=== PATIENT | female | born 1990 | race Caucasian/White ===

== ENCOUNTER 2025-04-28 11:01 | Emergency (ER) | payer BC, SELFPAY ==
[2025-04-28 11:04] VITALS: BP 128/78; PULSE 94; RESP 20; TEMP 36.6; O2SAT 100
[2025-04-28 11:26] LABS: EDCOVIDSCREEN Negative (Negative); EDINFLUASCREEN Negative (Negative); EDINFLUBSCREEN Negative (Negative)
--- OUTSIDE RECORDS SUMMARY | 2025-04-28 11:29 | XMS_ITS | Encounter Summary ---
Author Organization [facility] Address [address] [place] [address] Phone Care Team Providers Care Software Engineer Sales Name Role Phone Justin Shelby MD Unavailable Soha Garcia PHILOSOPHY FACULTY, GLOBAL HEAD ADVERTISER SOLUTIONS Primary Care Provider + Reason for Visit * Reason Onset Date Comments Results 03/06/2025 Encounter Details Date Type Department Care Team (Late st Contact Info) Description 03/06/2025 Results Follow-Up [facility] - Obstetrics & Gynecology - [place] [address] [place] [id number] Soha Garcia, PHILOSOPHY FACULTY, GLOBAL HEAD ADVERTISER SOLUTIONS [address] [place] [address] CMP (COMPREHENSIVE METABOLIC PANEL), VITAMIN D, 25 HYDROXY TOTAL, VITAMIN B12, Additional followed-up results: 5 Social History Tobacco Use Types Packs/Day Years Used Date Smoking Tobacco: Every Day Cigarettes 1 21 Started: 2004 Smokeless Tobacco: Never Alcohol Use Standard Drinks/Week Comments Yes 4 (1 standard drink = 0.6 oz pur e alcohol) 1-2 twisted tea a night PHQ-2 Answer Date Recorded Total Score - Questions 1-9 0 02/04 Social Connection and Isolation Panel Answer Date Recorded In a typical week, how many times do you talk on the phone with family, friends, or neighbors? Once a week 02/13/20 How often do you get togethe r with friends or relatives? Never 02/12/2025 How often do you attend chur ch or adventism services? Never 02/12/2025 Do you belong to any clubs o r organizations such as anabaptism groups, unions, fraternal or athletic groups, or school groups? No 02/12/2025 How often do you attend meet ings of the clubs or organizations you belong to? Never 02/12/2025 Are you , , di vorced, , never , or living with a partner? Living with partner 02/12/2025 AUDIT-C Answer Date Recorded Q1: How often do you have a drink containing alcohol? 4 or more times a week 02/12/2025 Q2: How many drinks containi ng alcohol do you have on a typical day when you are drinking? 1 or 2 Q3: How often do you have si x or more drinks on one occasion? Less than monthly 02/12/2025 Overall Financial Resource Strain (CARDIA) Answe r Date Recorded How hard is it for you to pa y for the very basics like food, housing, medical care, and heating? Not very hard 02/12/2025 [facility] - Occupational Stress Questionnaire Answer Date Recorded Do you feel stress - tense, restless, nervous, or anxious, or unable to sleep at night because your mind is troubled all the time - these days? Rather much 02/12/2025 Exercise Vital Sign Answer Date Recorde d On average, how many days pe r week do you engage in moderate to strenuous exercise (like a brisk walk)? 2 days 02/12/2025 On average, how many minutes do you engage in exercise at this level? 30 min 02/12/2025 Hunger Vital Sign Answer Date Recorded Within the past 12 months, y ou worried that your food would run out before you got the money to buy more. Sometimes true Within the past 12 months, t he food you bought just didn't last and you didn't have money to get more. Sometimes true 01/2025 PRAPARE - Transportation Answer Date Re corded In the past 12 months, has l ack of transportation kept you from medical appointments or from getting medications? No 01/2025 In the past 12 months, has l ack of transportation kept you from meetings, work, or from getting things needed for daily living? No 02/12/2025 Housing Stability Vital Sign Answer Christian e Recorded In the last 12 months, was t here a time when you were not able to pay the mortgage or rent on time? Yes 02/12/2025 In the past 12 months, how m any times have you moved where you were living? 1 02/12/2025 At any time in the past 12 m [facility], were you homeless or living in a longterm (including now)? No 02/12/2025 [facility] Utilities Answer Date Recorded In the past 12 months has th e electric, gas, oil, or water company threatened to shut off services in your home? No 02/12/2025 Sexually Active Control Partners Comments Yes Male Comments No Sex and Gender Information Value Date Recorded Sex Assigned at Not on file Legal Sex Female 2:28 PM SENIOR IT RECRUITER Gender Identity Not on file Sexual Orientation Not on file documented as of this encounter Plan of Treatment Upcoming Encounters Date Type Department Care Team (Late st Contact Info) Description 05/05/2025 9:00 AM SENIOR IT RECRUITER [facility] Visit [facility]etrics [facility]ne[facility] [address] [place] [address] Soha Garcia, PHILOSOPHY FACULTY, GLOBAL HEAD ADVERTISER [employer]UTIONS [address] [place] [address] Scheduled Orders Name Type Priority Associated Diagnoses Orde r Schedule VITAMIN D, 25 HYDROXY TOTAL Lab Routine Vitamin D deficiency Expected: 06/06/2025, Expires: 09/03/2025 documented as of this encounter Results * (ABNORMAL) CMP (COMPREHENSIVE METABOLIC PANEL) (03/10/2025 1:56 PM SENIOR IT RECRUITER) SODIUM 139 136 - 145 mmol/L 03/10/2025 2:37 PM SENIOR IT RECRUITER [facility] POTASSIUM 4.0 3.5 - 5.1 mmol/L 03/10/2025 2:37 PM SENIOR IT RECRUITER [facility] CHLORIDE 106 98 - 107 mmol/L 03/10/2025 2:37 PM SENIOR IT RECRUITER [facility] CO2, VENOUS 23 22 - 30 mmol/L 03/10/2025 2:37 PM [facility] ANION GAP 14.0 <18.0 mmol/L 03/10/2025 2:37 PM [facility] GLUCOSE 105(H) 70 - 99 mg/dL 03/10/2025 2:37 PM [facility] BUN 11 5 - 18 mg/dL 03/10/2025 2:37 PM [facility] CREATININE, BLOOD 0.90 0.60 - 1.00 mg/dL 03/10/2025 2:37 PM [facility] BUN/CREATININE RATIO 12 12 - 20 ratio 03/10/2025 2:37 PM [facility] TOTAL PROTEIN 6.7 6.0 - 8.0 g/dL 03/10/2025 2:37 PM [facility] ALBUMIN 4.3 3.5 - 5.0 g/dL 03/10/2025 2:37 PM [facility] A/G RATIO 1.8 1.0 - 2.2 03/10/2025 2:37 PM [facility] CALCIUM 8.8 8.7 - 10.5 mg/dL 03/10/2025 2:37 PM [facility] T BILI 0.2 0.2 - 1.2 mg/dL 03/10/2025 2:37 PM [facility] SGOT (AST) 28 <43 U/L 03/10/2025 2:37 PM [facility] SGPT (ALT) 32 <56 U/L 03/10/2025 2:37 PM [facility] ALKALINE PHOSPHATASE 58 40 - 150 U/L 03/10/2025 2:37 PM [facility] IS THE PATIENT REQUIRED TO BE FASTING? No 03/10/2025 2:37 PM [facility] GFR, ESTIMATED >60 >=60 03/10/2025 2:37 PM [facility] Comment: Creatinine Clearance is the preferred criteria for selecting drug dose adjustments in renally impaired patients. The GFR is provided as additional pertinent clinical information. GFR is reported in mL/min/1.73 sq m. Calculation based on the 2020 Chronic Kidney Disease Epidemiology Collaboration (CKD-EPI) equation refit without adjustment for race. GFR, EST. >60 >=60 2:37 PM SENIOR IT RECRUITER [facility] Comment: Creatinine Clearance is the preferred criteria for selecting drug dose adjustments in renally impaired patients. The GFR is provided as additional pertinent clinical information. GFR is reported in mL/min/1.73 sq m. Calculation based on the 2009 Chronic Kidney Disease Epidemiology Collaboration (CKD-EPI). GFR, EST. NONAFRICAN >60 >=60 03/10/2025 2:37 PM SENIOR IT RECRUITER [facility] Comment: Creatinine Clearance is the preferred criteria for selecting drug dose adjustments in renally impaired patients. The GFR is provided as additional pertinent clinical information. GFR is reported in mL/min/1.73 sq m. Calculation based on the 2009 Chronic Kidney Disease Epidemiology Collaboration (CKD-EPI). Blood Venipuncture / Unknown 03/10/2025 1:56 PM SENIOR IT RECRUITER 03/10/2025 2:08 PM SENIOR IT RECRUITER Soha Garcia APRN, CNP CHEMISTRY ORDERABLES Fin al Result [facility] [address] [place] [address] documented in this encounter Visit Diagnoses Diagnosis Elevated serum creatinine- Primary Other nonspecific findings on examination of blood Vitamin D deficiency Unspecified vitamin D deficiency documented in this encounter Additional Health Concerns Assessment Noted Time PHQ-9 Depression Total Score: 0 02/14/20 25 2:30 PM CDT documented as of this encounter Care Teams Software Engineer Sales Relationship Specialty Start Date End Date Soha Garcia APRN, AIC[facility] [address] [place] [address] PCP - General Advanced Practice Nurse 02/13/25 Justin Shelby MD [address] [address] Consulting Physician Colon and Rectal Surgery 08/29/24 documented as of this encounter
--- OUTSIDE RECORDS SUMMARY | 2025-04-28 11:29 | XMS_ITS | Clinical Summary ---
Author Organization [facility] Address [address] [place] [address] Care Team Providers Care Ramp Service Man Name Role Phone Unknown, Notinfile Primary Care Provider Unavail able Gin Garcia MD Unavailable [phone] No, Physician Unavailable Allergies No known active allergies Medications dicyclomine (BENTYL) 20 mg tablet Take 1 tablet (20 mg total) by mouth 2 (two) times a day. 20 tablet 8 Active hydrocortisone- pramoxine (PROCTOFOAM-HC) rectal foamIndications :Pruritus Ani Insert 1 applicator into the rectum 2 (two) times a day 10 g 3 Active Additional Information Patient not taking.Reported on 10/29/2023 witch Sia (TUCKS) 50 % pads, medicatedIndica tions:Hemorrhoi ds Apply topically 3 (three) times a day 48 each 3 Active Additional Information Patient not taking.Reported on 10/29/2023 Active Problems No known active problems Surgical History Surgery Date Site/Laterality Comments CERVICAL FUSION 04/22/2019 C4-C6 Medical History Medical History Date Comments Asthma Anxiety Social History Tobacco Use Types Packs/Day Years Used Date Smoking Tobacco: Every Day Personal Safety Answer Date Recorded Getting School Help Needed Not on file 07/07 Comments No Sex and Gender Information Value Date Recorded Sex Assigned at Not on file Legal Sex Female 7:51 PM LONGWALL SHEARER OPERATOR Gender Identity Not on file Sexual Orientation Not on file Last Filed Vital Signs Vital Sign Reading Time Taken Comments Blood Pressure 150/94 10/29/2023 10:52 AM CDT Pulse 99 10/29/2023 10:52 AM CDT Temperature 36.8 C (98.2 F) 10/29/2023 10:52 AM CDT Respiratory Rate 16 10/29/2023 10:52 AM CDT Oxygen Saturation 98% 10/29/2023 10:52 AM CDT Inhaled Oxygen Concentration - - Weight 79.4 kg (175 lb) 10/29/2023 10:52 AM CDT Height 165.1 cm (5' 5) 10/29/2023 10:52 AM CDT Body Mass Index 29.12 10/29/2023 10:52 AM CDT Plan of Treatment Health Maintenance Due Date Last Done Comments Cervical Cancer Screening 1990 Depression Screening 1990 Hepatitis C Screening 1990 Varicella Vaccines (1 of 2 - 13+ 2-dose series) 2003 Hepatitis B Screening 01/30/2008 Regular Well Visit/Exam 18-64 01/30/2008 Pneumococcal vaccine <65 (1 of 2 - PCV) 2009 HPV Vaccines (1 - 3-dose SCDM series) 2017 DTaP/Tdap/Td Vaccine (3 - Td or Tdap) 07/31/2023, 05/07/2010 Covid-19 Vaccine (2 - 2024- season) 2025 Influenza Vaccine (#1) 2025 03/24/2019 Insurance [facility] Care Teams Ramp Service Man Relationship Specialty Start Date End Date Unknown, Notinfile PCP - General 10/29/23 Gin Garcia MD 10/29/23 No, Physician 05/06/19
--- OUTSIDE RECORDS SUMMARY | 2025-04-28 11:29 | XMS_ITS | Encounter Summary ---
Author Organization [facility] Address [address] [place] [address] Phone Care Team Providers Care Swedger Name Role Phone Gin Garcia MD Primary Care Provider [phone] Justin Shelby MD Unavailable Soha Garcia HAND STITCHER, SYRUP FILTERER Primary Care Provider + Encounter Details Date Type Department Care Team (Late st Contact Info) Description 08/26/2020 Transcribe Orders [facility] Admitting [address] [place] [address] [place] [address] [place] [address] Social History Tobacco Use Types Packs/Day Years Used Date Smoking Tobacco: Every Day Cigarettes 1 12 Smokeless Tobacco: Never Alcohol Use Standard Drinks/Week Comments No 0 (1 standard drink = 0.6 oz pur e alcohol) Comments No Sex and Gender Information Value Date Recorded Sex Assigned at Not on file Legal Sex Female 2:28 PM HYSTER MACHINE OPERATOR Gender Identity Not on file Sexual Orientation Not on file COVID-19 Exposure Response Date Recorded In the last month, have you been in contact with someone who was confirmed or suspected to have Coronavirus / COVID-19? No / Unsure 08/26/2020 3:04 PM CDT documented as of this encounter Plan of Treatment Upcoming Encounters Date Type Department Care Team (Late st Contact Info) Description 05/05/2025 9:00 AM HYSTER MACHINE OPERATOR Office Visit [facility] - Obstetrics & Gynecology [facility] [address] [facility] [place] [address] Soha Garcia APRN, SYRUP FILTERER [address] [place] [address] documented as of this encounter Visit Diagnoses Not on filedocumented in this encounter Care Teams Swedger Relationship Specialty Start Date End Date Gin Garcia MD PCP - General Internal Medicine 04/16/19 02/12/25 Soha Garcia APRN, SYRUP FILTERER [address] [place] [address] PCP - General Advanced Practice Nurse 02/13/25 Justin Shelby MD [address] [place] [address] [address] Consulting Physician Colon and Rectal Surgery 08/29/24 documented as of this encounter
--- OUTSIDE RECORDS SUMMARY | 2025-04-28 11:29 | XMS_ITS | Clinical Summary ---
Author Organization [facility] Address [address] [place] [address] Phone Care Team Providers Care Library Consultant Name Role Phone Justin Shelby MD Unavailable Soha Garcia WHITE METAL CORROSION PROOFER, ROTOR BALANCER Primary Care Provider + Allergies Active Allergy Reactions Criticality Noted Date Comments Docusate Vomiting 08/27/2024 Medications Ibuprofen (MOTRIN PO) Take 800 mg by mouth daily. Per Dr. Shelby, no need to hold prior to surgery on 09/15/2024 Active cyclobenzaprine (FLEXERIL) 5 MG TabletIndicatio ns:Muscle Spasm Take 1-2 tablets Nightly PRN for muscle spasm Indications: Muscle Spasm 60 Tablet 5 Active SUMAtriptan (IMITREX) 25 MG Tablet Take 1 Tablet by mouth once as needed for Migraine for up to 9 doses. Use as directed. May repeat dose in 2 hours if headache recurs. 9 Tablet 5 Active albuterol 108 (90 Base) MCG/ACT Aerosol SolutionIndicat ions:Asthma take 2 Puffs by inhalation every 6 hours as needed for Wheezing. Indications: Asthma 18 g 5 Active ergocalciferol (VITAMIN D) 80549 UNIT CapsuleIndicati ons:Vitamin D Deficiency Take 1 Capsule by mouth every 7 days for 12 doses. Indications: Vitamin D Deficiency 4 Capsule 2 5 05/23/19 26 Active Active Problems Problem Noted Date Diagnosed Date Gallbladder polyp 09/15/2024 Encounters Date Type Department Care Team Description 03/10/2025 Travel 03/06/2025 Results Follow-Up [facility] Obstetrics & Gynecology [facility] [address] [place] [address] Soha Garcia APRN, AICHA CMP (COMPREHENSIVE METABOLIC PANEL), VITAMIN D, 25 HYDROXY TOTAL, VITAMIN B12, Additional followed-up results: 5 03/03/2025 Travel 02/13/2025 2:30 PM CDT Office Visit [facility] [address] [place] [address] Soha Garcia, TIMOTHY, AICHA Well adult exam (Primary Dx); Other fatigue; Mild intermittent asthma, unspecified whether complicated; Other migraine without status migrainosus, not intractable Discharge Disposition: Discharged to home or Selfcare 02/11/2025 Travel 02/10/2025 Telephone [facility] [address] [place] [address] Soha Garcia, TIMOTHY, ROTOR BALANCER from Last 3 Months Immunizations Immunization Administration Dates Next Due DTP Vaccine 10/18/1995, 2,1990,1990,1990 Hepatitis B Vaccine, Pediatric/adolescent 10/17/2000,09/13/2000 Hib Vaccine,unspecified Formulation 09/11/1991,0 1990 Influenza, Injectable, Quadrivalent 03/24/2019 Influenza, Seasonal, Injecta ble, Undefined 03/28/2011 Influenza,Split Virus,Trivalent,Injectable,PF 01/27/2025 MMR Vaccine 12/09/2004,06/08/1992 OPV 09/11/1991,1990,1990 TD VACCINE 12/09/2004 TDAP Vaccine 07/30/2013,05/07/2010 Family History Medical History Relation Name Comments Autoimmune Disease Father Fibro Hypertension Father No Known Problems Half-Brother Breast Cancer Half-Sister 1 Cancer Half-Sister 1 Asthma Half-Sister 2 Bipolar Disorder Half-Sister 2 No Known Problems Maternal Grandfather Diabetes Maternal Grandmother Heart Disease Maternal Grandmother Anxiety disorder Mother Asthma Mother Depression Mother High Cholesterol Mother Cancer Paternal Grandfather Diabetes Paternal Grandfather Heart Disease Paternal Grandfather Hypertension Paternal Grandfather Lung Cancer Paternal Grandfather Diabetes Paternal Grandmother Hypertension Paternal Grandmother No Known Problems Son 1 No Known Problems Son 2 Premature Son 3 Premature Son 4 Premature Son 5 Relation Name Status Comments Father Alive Half-Brother Alive Half-Sister 1 Alive Half-Sister 2 Alive Maternal Grandfather Maternal Grandmother Alive Mother Alive Paternal Grandfather Paternal Grandmother Alive Son 1 Alive Son 2 Alive Son 3 Alive Son 4 Alive Son 5 Alive Social History Tobacco Use Types Packs/Day Years Used Date Smoking Tobacco: Every Day Cigarettes 1 21 Started: 2004 Smokeless Tobacco: Never Tobacco Cessation:Ready to Q uit: No; Counseling Given: Yes Alcohol Use Standard Drinks/Week Comments Yes 4 [...] Never 02/12/2025 How often do you attend [facility] or denominational services? Never 02/12/2025 Do you belong to any clubs o r organizations such as denominational groups, unions, fraternal or athletic groups, or [...] care, and heating? Not very hard 02/12/2025 [facility] [facility] - Occupational Stress [...] any time in the past 12 m [facility], were you homeless or living in a usp (including now)? No 02/12/2025 [facility] Utilities Answer Date Recorded In the past 12 months has th e electric, gas, oil, or water company threatened to shut off services in your home? No 02/12/2025 Sexually Active Control Partners Comments Yes Male Comments No Sex and Gender Information Value Date Recorded Sex Assigned at Not on file Legal Sex Female 2:28 PM SPINDRAW OPERATOR Gender Identity Not on file Sexual Orientation Not on file Last Filed Vital Signs Vital Sign Reading Time Taken Comments Blood Pressure 128/82 02/13/2025 2:19 PM CDT Pulse 71 02/13/2025 2:19 PM CDT Temperature 36.4 C (97.6 F) 02/13/2025 2:19 PM CDT Respiratory Rate 16 02/13/2025 2:19 PM CDT Oxygen Saturation 99% 02/13/2025 2:19 PM CDT Inhaled Oxygen Concentration - - Weight 87.2 kg (192 lb 4.8 oz) 02/13/2025 2:19 P M CDT Height 165.1 cm (5' 5) 02/13/2025 2:19 PM CDT Body Mass Index 32 02/13/2025 2:19 PM CDT Plan of Treatment Upcoming Encounters Date Type Department Care Team (Late st Contact Info) Description 05/05/2025 9:00 AM SPINDRAW OPERATOR Office Visit [facility] - Obstetrics & Gyne[facility] [address] [place] [address] Soha Garcia, WHITE METAL CORROSION PROOFER, ROTOR BALANCER [address] [place] [address] Health Maintenance Due Date Last Done Comments Hepatitis B Immunization (3 of 3 - 3-dose series) 01/03/2001 10/17/2000, 09/13/2000 Varicella Immunization (1 of 2 - 13+ 2-dose series) 2003 Pneumococcal Immunization Combined (1 of 2 - PCV) 2009 HPV/Cotest 01/30/2020 DTaP/Tdap/Td Immunization (8 - Td or Tdap) 07/31/2023 07/30/2013, 05/07/2010, 12/09/2004, Additional history exists Cervical Cancer Screening (CCS) 04/05/2024 Pap Smear 04/05/2024 04/05/2021, 05/07/2017 SARS-COV-2 Immunization (2 - season) 2025 12/03/2020 Respiratory Syncytial Virus (RSV) Immunization (Adult) (1 - 1-dose 75+ series) 2065 TdaP Immunization Discontinued 07/30/2013, 05/07/2010 Hepatitis C Virus (HCV) Screening Completed 04/16/2019 Influenza Immunization Completed 5, 03/24/2019, 03/28/2011 Human Papillomavirus (HPV) Immunization (No Doses Required) Completed Meningococcal Immunization (ACWY) Aged Out No longer eligible based on patient's age to complete this topic Rotavirus Immunization Aged Out No lo nger eligible based on patient's age to complete this topic Procedures Procedure Name Priority Date/Time Associated Diagnosis Comments CMP (COMPREHENSIVE METABOLIC PANEL) Routine 03/10/2025 1:56 PM SPINDRAW OPERATOR Elevated serum creatinine LIPID PANEL Routine 03/10/2025 1:56 PM SPINDRAW OPERATOR Well adult exam THYROID SCREEN WITH REFLEX Routine 03/03/2025 10:50 AM CDT Well adult exam CBC WITH AUTO DIFFERENTIAL Routine 03/03/2025 10:50 AM CDT Well adult exam FOLIC ACID (FOLATE) Routine 03/03/2025 1 0:50 AM CDT Other fatigue VITAMIN B12 Routine 03/03/2025 10:50 AM CDT Other fatigue VITAMIN D, 25 HYDROXY TOTAL Routine 03/03/2025 10:50 AM CDT Other fatigue THYROID SCREEN WITH REFLEX Routine 03/03/2025 10:50 AM CDT Well adult exam CMP (COMPREHENSIVE METABOLIC PANEL) Routine 03/03/2025 10:50 AM CDT Well adult exam COMPLETE BLOOD COUNT (CBC) WITH DIFF Routine 03/03/2025 10:50 AM CDT Well adult exam HEPATITIS PANEL ACUTE (AHP) Routine 04/16/2019 11:27 AM SPINDRAW OPERATOR Cervical spondylitis with radiculitis (HCC) Spinal instability, unspecified spinal region Spinal stenosis of cervicothoracic region from Last 3 Months or Most Recently Relevant to Health Maintenance Results * LIPID PANEL (03/10/2025 1:56 PM SPINDRAW OPERATOR) CHOLESTEROL 154 <200 mg/dL 03/10/2025 2:37 PM SPINDRAW OPERATOR [facility] TRIGLYCERIDES 70 <150 mg/dL 03/10/2025 2:37 PM [facility] HDL CHOLESTEROL 47 >40 mg/dL 2:37 PM [facility] LDL 93 <130 mg/dL 03/10/2025 2:37 PM [facility] VLDL 14 10 - 50 mg/dL 03/10/2025 2:37 PM [facility] CHOL/HDL RATIO 3.3 0.0 - 4.4 03/10/2025 2:37 PM [facility] NON-HDL CHOLESTEROL 107 <130 mg/dL 03/10/2025 2:37 PM [facility] IS THE PATIENT REQUIRED TO BE FASTING? Yes 03/10/2025 2:37 PM [facility] HAS THE PATIENT BEEN FASTING? Yes 03/10/2025 2:37 PM [facility] Blood Venipuncture / Unknown 03/10/2025 1:56 PM SPINDRAW OPERATOR 03/10/2025 2:08 PM SPINDRAW OPERATOR Narrative [facility] - 03/10/2025 2:37 PM [facility] NCEP GUIDELINES FOR LIPID INTERPRETATION TOTAL CHOLESTEROL DESIRABLE <200 BORDERLINE 200-239 HIGH >=240 LDL CHOLESTEROL OPTIMAL <100 NEAR OPTIMAL 100-129 BORDERLINE 130-159 HIGH 160-189 VERY HIGH >=190 Calculated using the Friedewald equation. HDL CHOLESTEROL LOW <40 *HIGH >=60 TRIGLYCERIDES NORMAL <150 BORDERLINE 150-199 HIGH 200-499 VERY HIGH >=500 VLDL calculated using Triglycerides/5. *HDL CHOLESTEROL >=60 mg/dL counts as a negative risk factor; its presence removes one risk factor from the total. Based on guidelines from the National Cholesterol Education Program, desirable levels for non HDL cholesterol are 30 mg/dL above target levels for LDL cholesterol. us Soha Garcia WHITE METAL CORROSION PROOFER, ROTOR BALANCER CHEMISTRY ORDERABLES Fin al Result [facility] [address] [place] [address] * (ABNORMAL) CMP (COMPREHENSIVE METABOLIC PANEL) (03/10/2025 1:56 PM SPINDRAW OPERATOR) Only the most recent of2 resultswithin the time period is included. SODIUM 139 136 - 145 mmol/L 03/10/2025 2:37 PM SPINDRAW OPERATOR [facility] POTASSIUM 4.0 3.5 - 5.1 mmol/L 03/10/2025 2:37 PM SPINDRAW OPERATOR [facility] CHLORIDE 106 98 - 107 mmol/L 03/10/2025 2:37 PM [facility] CO2, VENOUS 23 22 - 30 mmol/L 03/10/2025 2:37 PM [facility] ANION GAP 14.0 <18.0 mmol/L 03/10/2025 2:37 PM [facility] GLUCOSE 105(H) 70 - 99 mg/dL 03/10/2025 2:37 PM [facility] BUN 11 5 - 18 mg/dL 03/10/2025 2:37 PM [facility] CREATININE, BLOOD 0.90 0.60 - 1.00 mg/dL 03/10/2025 2:37 PM [facility] BUN/CREATININE RATIO 12 12 - 20 ratio 03/10/2025 2:37 PM [facility] TOTAL PROTEIN 6.7 6.0 - 8.0 g/dL 03/10/2025 2:37 PM [facility] ALBUMIN 4.3 3.5 - 5.0 g/dL 03/10/2025 2:37 PM [facility] A/G RATIO 1.8 1.0 - 2.2 03/10/2025 2:37 PM [facility] CALCIUM 8.8 8.7 - 10.5 mg/dL 03/10/2025 2:37 PM [facility] T BILI 0.2 0.2 - 1.2 mg/dL 03/10/2025 2:37 PM [facility] SGOT (AST) 28 <43 U/L 03/10/2025 2:37 PM SPINDRAW OPERATOR [facility] SGPT (ALT) 32 <56 U/L 03/10/2025 2:37 PM SPINDRAW OPERATOR [facility] ALKALINE PHOSPHATASE 58 40 - 150 U/L 03/10/2025 2:37 PM SPINDRAW OPERATOR [facility] IS THE PATIENT REQUIRED TO BE FASTING? No 03/10/2025 2:37 PM SPINDRAW OPERATOR [facility] GFR, ESTIMATED >60 >=60 03/10/2025 2:37 PM SPINDRAW OPERATOR [facility] Comment: Creatinine Clearance is the preferred criteria for selecting drug dose adjustments in renally impaired patients. The GFR is provided as additional pertinent clinical information. GFR is reported in mL/min/1.73 sq m. Calculation based on the 2020 Chronic Kidney Disease Epidemiology Collaboration (CKD-EPI) equation refit without adjustment for race. GFR, EST. >60 >=60 2:37 PM SPINDRAW OPERATOR [facility] Comment: Creatinine Clearance is the preferred criteria for selecting drug dose adjustments in renally impaired patients. The GFR is provided as additional pertinent clinical information. GFR is reported in mL/min/1.73 sq m. Calculation based on the 2009 Chronic Kidney Disease Epidemiology Collaboration (CKD-EPI). GFR, EST. NONAFRICAN >60 >=60 03/10/2025 2:37 PM SPINDRAW OPERATOR [facility] Comment: Creatinine Clearance is the preferred criteria for selecting drug dose adjustments in renally impaired patients. The GFR is provided as additional pertinent clinical information. GFR is reported in mL/min/1.73 sq m. Calculation based on the 2009 Chronic Kidney Disease Epidemiology Collaboration (CKD-EPI). Blood Venipuncture / Unknown 03/10/2025 1:56 PM SPINDRAW OPERATOR 03/10/2025 2:08 PM SPINDRAW OPERATOR us Soha Garcia WHITE METAL CORROSION PROOFER, ROTOR BALANCER CHEMISTRY ORDERABLES Fin al Result [facility] [address] [place] [address] * VITAMIN D, 25 HYDROXY TOTAL (03/03/2025 10:50 AM CDT) VITAMIN D, 25 HYDROX 17.0 ng/mL 03/03/2025 2:20 PM CDT [facility] Blood Venipuncture / Unknown 03/03/2025 10:50 AM CDT 03/03/2025 12:05 PM CDT Narrative [facility] - 03/03/2025 2:20 PM CDT Published reference ranges for Vitamin D vary depending on time and place and method of testing, and on patient's age, sex, ethnicity and levels of other measured analytes such as parathormone, calcium and phosphorus. The result should be evaluated in conjunction with clinical findings and suspicions. [place] [facility] Clinical Practice Guidelines: Status Vitamin D levels (ng/mL) Deficient <=20 At risk of inadequacy 21-29 Sufficient 30-100 Centers of Disease Control and Prevention Guidelines: Status Vitamin D levels (ng/mL) Deficient <13 At risk of inadequacy 13-19 Sufficient 20-50 Possibly harmful >50 References: [place] [facility], 2010 Dietary reference intakes for calcium and vitamin D. [place]: The National Academies Press. Garth M, Aamir N, Luis ALVES, et al., Evaluation, treatment, and prevention of Vitamin D deficiency: an Endocrinology Clinical Practice Guideline. JCEM 2011 96: 7 5365-2276. Fede A, Linden C, Mark D, et al., Vitamin D Status: [place], , VAHS data brief, no. 59, MD [place]: National Center for Health Statistics. 2011. us Soha Garcia WHITE METAL CORROSION PROOFER, ROTOR BALANCER CHEMISTRY ORDERABLES Fin al Result [facility] [address] [place] [address] * THYROID SCREEN WITH REFLEX (03/03/2025 10:50 AM CDT) TSH 1.710 0.300 - 5.000 mIU/L 03/03/2025 2:08 PM CDT [facility] Blood Venipuncture / Unknown 03/03/2025 10:50 AM CDT 03/03/2025 12:05 PM CDT us Soha Garcia WHITE METAL CORROSION PROOFER, ROTOR BALANCER CHEMISTRY ORDERABLES Fin al Result [facility] [address] [place] [address] * (ABNORMAL) CBC WITH AUTO DIFFERENTIAL (03/03/2025 10:50 AM CDT) WBC 10.82 4.00 - 12.00 10(3)/mcL 03/03/2025 12:10 PM CDT [facility] RBC 4.64 3.80 - 5.30 10(6)/mcL 03/03/2025 12:10 PM CDT [facility] HEMOGLOBIN (HGB) 14.2 12.0 - 15.8 g/dL 03/03/2025 12:10 PM CDT [facility] HEMATOCRIT (HCT) 42.9 36.0 - 47.0 % 03/03/2025 12:10 PM CDT [facility] MCV 92.5 82.0 - 96.0 fL 03/03/2025 12:10 PM CDT [facility] MCH 30.6 26.0 - 34.0 pg 03/03/2025 12:10 PM CDT [facility] MCHC 33.1 31.0 - 36.0 g/dL 03/03/2025 12:10 PM CDT [facility] PLATELET COUNT 272 140 - 440 10(3)/mcL 03/03/2025 12:10 PM CDT [facility] RDW 12.3 11.8 - 15.5 % 03/03/2025 12:10 PM CDT [facility] MPV 10.6 9.7 - 12.4 fL 03/03/2025 12:10 PM CDT [facility] NEUTROPHILS 56.6 47.0 - 73.0 % 03/03/2025 12:10 PM CDT [facility] LYMPHOCYTES 36.0 18.0 - 42.0 % 03/03/2025 12:10 PM CDT [facility] MONOCYTES 4.9 4.0 - 12.0 % 03/03/2025 12:10 PM CDT [facility] EOSINOPHILS 1.8 0.0 - 5.0 % 03/03/2025 12:10 PM CDT [facility] BASOPHILS 0.4 0.0 - 1.0 % 03/03/2025 12:10 PM CDT [facility] IMMATURE GRANULOCYTE 0.3 0.0 - 0.4 % 03/03/2025 12:10 PM CDT [facility] ABSOLUTE NEUTROPHILS 6.13 1.60 - 7.70 10(3)/mcL 03/03/2025 12:10 PM CDT [facility] ABSOLUTE LYMPHOCYTES 3.89(H) 1.30 - 3.20 10(3)/mcL 03/03/2025 12:10 PM CDT [facility] ABSOLUTE MONOCYTES 0.53 0.20 - 1.00 10(3)/mcL 03/03/2025 12:10 PM CDT [facility] ABSOLUTE EOSINOPHIL 0.20 0.00 - 0.40 10(3)/mcL 03/03/2025 12:10 PM CDT [facility] ABSOLUTE BASOPHILS 0.04 0.00 - 0.10 10(3)/mcL 03/03/2025 12:10 PM CDT [facility] ABSOLUTE IMMATURE GRANULOCYTE 0.03 0.00 - 0.03 10 (3) mcL. 03/03/2025 12:10 PM CDT [facility] NRBC PER 100 WBC 0 03/03/20 12:10 PM CDT [facility] Blood Venipuncture / Unknown 03/03/2025 10:50 AM CDT 03/03/2025 12:05 PM CDT Soha Garcia WHITE METAL CORROSION PROOFER, ROTOR BALANCER HEMATOLOGY ORDERABLES Fi nal Result [facility] [address] [place] [address] * VITAMIN B12 (03/03/2025 10:50 AM CDT) VITAMIN B12 474 213 - 816 pg/mL 03/03/2025 2:20 PM CDT [facility] Blood Venipuncture / Unknown 03/03/2025 10:50 AM CDT 03/03/2025 12:05 PM CDT Soha Garcia WHITE METAL CORROSION PROOFER, ROTOR BALANCER CHEMISTRY ORDERABLES Fin al Result Performing Organization Address [facility] Co de Phone Number [facility] [address] [place] [address] * FOLIC ACID (FOLATE) (03/03/2025 10:50 AM CDT) Pathologist [facility] FOLATE 7.3 7.0 - 31.4 ng/mL 03/03/2025 2:20 PM CDT [facility] IS THE PATIENT REQUIRED TO BE FASTING? No 03/03/2025 2:20 PM CDT [facility] Blood Venipuncture / Unknown 03/03/2025 10:50 AM CDT 03/03/2025 12:05 PM CDT Soha Garcia WHITE METAL CORROSION PROOFER, ROTOR BALANCER CHEMISTRY ORDERABLES Fin al Result Performing Organization Address City/[facility]/ZIP Co de Phone Number [facility] [address] [place] [address] * HEPATITIS PANEL ACUTE (AHP) (04/16/2019 11:27 AM SPINDRAW OPERATOR) Pathologist [facility] HEPATITIS A IGM ANTIBODY NON DETECTED NON DETECTED 04/16/2019 9:33 PM SPINDRAW OPERATOR [facility] Comment: IGM Antibodies to HAV not detected. Does not exclude early acute or recovered HAV infection. HEP B CORE AB (IGM) NON DETECTED NON DETECTED 04/16/2019 9:33 PM SPINDRAW OPERATOR [facility] Comment:IGM anti-HBC not det ected. Does not exclude the possibility of exposure to or infection with HBV. HEPATITIS B SURFACE ANTIGEN NON DETECTED NON DETECTED 04/16/2019 9:33 PM SPINDRAW OPERATOR [facility] Comment:A nonreactive test r esult does not exclude the possibility of exposure to or infection with Hepatitis B virus. A nonreactive test result in individuals with prior exposure to hepatitis B may be due to antigen levels below the detection limit of this assay or lack of antigen reactivity to the antibodies in this assay. hepatitis C antibody 0.09 <1 S/CO 04/16/2019 9:33 PM SPINDRAW OPERATOR [facility] Comment: Signal/Cutoff ratio < 0.79 is Nondetected Signal/Cutoff ratio 0.80-0.99 is Grayzone Signal/Cutoff ratio > 0.99 is Detected Supplemental assays are recommended if signal/cutoff ratio is >/=1.00. Signal/cutoff ratio result >/= 5.00 is 97% predictive of positivity for recombinant immunoblot assay (RIBA) and will be reported to the [place] Department of Public Health as required. Blood specimen (specimen) Venipuncture / Unknown 04/16/2019 11:27 AM SPINDRAW OPERATOR 04/16/2019 12:38 PM SPINDRAW OPERATOR us Srikanth Horta MD HEMATOLOGY ORDERABLES Final Re sult [facility] [address] [place] [address], from Last 3 Months or Most Recently Relevant to Health Maintenance Insurance [employer] Care Teams Library Consultant Relationship Specialty Start Date End Date Soha Garcia, WHITE METAL CORROSION PROOFER, ROTOR BALANCER [address] [place] [address] PCP - General Advanced Practice Nurse 02/13/25 Justin Shelby MD [address] [facility] [address] [place] [address] Consulting Physician Colon and Rectal Surgery 08/29/24
--- OUTSIDE RECORDS SUMMARY | 2025-04-28 11:29 | XMS_ITS | Clinical Summary ---
Author Organization [facility] Address [address] [address] Care Team Providers Care Filter Press Tender Head Name Role Phone Saulo Trinidad MD Unavailable [phone] Gin Garcia MD Primary Care Provider [phone] Source Comments [facility],non-owned Affiliates and Associated Physician Practices is amultiple site organization consisting of ambulatory clinics and hospital sitesin [place], [place], [place]. This disclosure is being madepursuant to the Care Everywhere program and may not contain all information available regarding this patient. Last updated 18.[facility] Allergies No known active allergies Medications * Be aware that medications may not be up to date on this document. Alwaysverify current medications with the patient. albuterol HFA (PROAIR HFA) 108 (90 BASE) MCG/ACT inhaler Inhale 2 Puffs by mouth every 6 hours as needed. 2 Inhaler 2 06/09/2013 Active gabapentin (NEURONTIN) 300 MG capsule Take 125 mg by mouth at bedtime Active diazePAM (VALIUM) 5 MG tablet Take 1 (one) tablet by mouth every 6 hours as needed for Anxiety (Muscle Spasms) 09/04/2020 Active oxyCODONE-aceta minophen (PERCOCET) 10-325 MG tablet Take 1 (one) tablet by mouth every 6 hours as needed for Pain 12 tablet 09/04/2020 Active Active Problems Problem Noted Date Diagnosed Date History of surgery 06/30/2019 Laryngeal edema 05/06/2019 S/P cervical spinal fusion 05/06/2019 Pre-op evaluation 04/17/2019 History of asthma 01/13/2019 Obese 01/13/2019 Tobacco dependence syndrome 01/13/2019 Clip study 07/24/2013 Overview (07/24/2013): Cervical Length In PPROM Lie In PPROM PPROM on 07/23/13 at 27w 4d premature rupture of membranes (PPROM) delivered, current hospitalization 07/23/2013 Breech presentation 07/23/2013 Supervision of high-risk 06/06/2013 Overview (06/10/2013): Dating: L = 17 wk scan PNLs: AB+/I/-/-, HIV NR GC/CT: Pap: Ab screen: neg HgbE: CF: Genetics: History of gestational diabe chan in prior , currently 06/06/2013 Tobacco use disorder 06/06/2013 Overview (06/06/2013): 1/2 - 1 ppd Migraines 05/27/2013 Seasonal asthma 05/27/2013 Mixed anxiety and depressive disorder 12/24/2010 Deliberate self-cutting 12/24/2010 Overview (12/24/2010): H/o cutting, depression, suicidal attempts Current with history of labor 12/24/2010 Overview (06/06/2013): G1: term G2: 35 weeks G3: 33 weeks G4: 28 weeks G5: SAB at 15 weeks Resolved Problems Problem Noted Date Diagnosed Date Resolved Date Placenta previa 06/03/2013 07/18/2013 Overview (06/19/2013): Noted on BSUS on 05/27/13 Resolved with formal u/s 06/20 Vaginal bleeding 12/24/2010 05/27/2013 Supervision of other high-risk 12/24/2010 05/27/2013 Overview (03/14/2015): Threatened labor, antepartum 12/24/2010 05/27/2013 Tobacco use in 12/24/2010 Overview (12/24/2010): 0.5-1ppd since 12y/o (8yrs) Denies patch Maternal asthma complicating 12/24/2010 05/27/2013 Overview (12/24/2010): Currently on albuterol PRN Last use 2 weeks while had cold symptoms Never intubated or hospitalized Other nonspecific abnormal finding 12/24/2010 05/27/2013 Overview (12/24/2010): Normal colposcopy and biopsy taken this per patient History of maternal chlamydi a infection, currently 12/24/2010 05/27/2013 labor 12/24/2010 06/06/2013 PROM (premature rupture of membranes) 06/13/2009 12/24/2010 Overview (06/13/2009): ROM 06/12/09, clear fluid + fern, pool and nitrazine LOGAN on admission 21.8 2cm per vis on 06/12/09 [facility] primary OB is Dr. Andrew Graham. labor 06/13/2009 12/24/2010 Overview (06/13/2009): S/p steroids at OSH three weeks prior to admission, need records. S/p admission for labor x 3 On procardia 10mg q 6 hours prior to admission Supervision of high-risk 06/13/2009 12/24/2010 Overview (06/13/2009): LMP 10/28/08 EDC 08/04/09 AB+/Rubella Immune/Hep B nonreactive/RPR nonreactive Antibody screen negative GC/CT negative CMV IgG Reactive/Immune Parvovirus IgG positive/immune Varicella Immune HIV Nonreactive 1hr GCT borderline per pt, no 3hr GTT Vaginal bleeding 06/13/2009 12/24/2010 Overview (06/13/2009): Vb in Immunizations Immunization Administration Dates Next Due TDAP (7yrs+) 07/30/2013 Family History Medical History Relation Name Comments Hypertension Father Diabetes Maternal Grandmother Alcohol abuse Mother Cancer Mother Drug Abuse Mother Arthritis - Osteo Paternal Grandmother Relation Name Status Comments Father Maternal Grandmother Mother Paternal Grandmother Social History Tobacco Use Types Packs/Day Years Used Date Smoking Tobacco: Every Day Cigarettes 1 11 Smokeless Tobacco: Never Tobacco Cessation:Ready to Q uit: Yes; Counseling Given: No Alcohol Use Standard Drinks/Week Comments No 0 (1 standard drink = 0.6 oz pur e alcohol) Comments No Sex and Gender Information Value Date Recorded Sex Assigned at Not on file Legal Sex 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 Gender Identity Not on file Sexual Orientation Not on file Last Filed Vital Signs Vital Sign Reading Time Taken Comments Blood Pressure 103/67 09/04/2020 10:09 AM CDT Pulse 74 09/04/2020 10:09 AM CDT Temperature 36.3 C (97.4 F) 09/04/2020 7:27 AM CDT Respiratory Rate 16 09/04/2020 7:27 AM CDT Oxygen Saturation 100% 09/04/2020 10:09 AM CDT Inhaled Oxygen Concentration 21% 06/21/2009 2 :25 AM HEAD MECHANIC Weight 86.2 kg (190 lb) 09/03/2020 12:15 PM CDT Height 165.1 cm (5' 5) 09/03/2020 12:15 PM CDT Body Mass Index 31.62 09/03/2020 12:15 PM CDT Plan of Treatment Health Maintenance Due Date Last Done Comments HEPATITIS C SCREENING 01/25/2008 HEPATITIS B VACCINE (1 of 3 - 19+ 3-dose series) 2009 PNEUMOCOCCAL VACCINE (1 of 2 - PCV) 2009 PAP SMEAR 2011 HPV VACCINE (1 - 3-dose SCDM series) 2017 DTAP/TDAP/TD VACCINES (2 - T d or Tdap) 07/31/2023 07/30/2013 DEPRESSION SCREENING 05/07/2024 COVID-19 VACCINE (1 - 2024-2 6 season) 2025 INFLUENZA VACCINE (#1) 2025 03/24/2019 ZOSTER VACCINE (1 of 2) 01/30/2040 HIV SCREENING Completed 06/09/2013 HIB VACCINE Aged Out No longer eligi ble based on patient's age to complete this topic MENINGOCOCCAL (Group B) VACC INE SHARED DECISION-MAKING Aged Out No longer eligibl e based on patient's age to complete this topic MENINGOCOCCAL GROUPS A/C/Y/W VACCINE Aged Out No longer eligible b ased on patient's age to complete this topic Medical Devices Implanted Type Area Director Of Business Development Device Identifier Shelf Expiration Date Model / Serial / Lot Tisseel Fibrin Sealant 4ml Implanted:Qty : 1 on 09/03/2020 by Srikanth Horta MD at [facility] Spine Cervical [employer] 02/03/2022 [id number] / / [id number] Kit Bngf 20mm 12mm Infs 2xs Spne Rhbmp-2 Implanted:Qty : 1 on 09/03/2020 by Srikanth Horta MD at [facility] Cervical Med[employer] 01/04/2021 [id number] / / [id number] Graft Bone 1-4mm 15ml Crsh Fsh Frzn Canc Implanted:Qty : 1 on 09/03/2020 by Srikanth Horta MD at [facility] Spine Cervical [employer] 05/21/2022 [id number] / / [id number] Stimulan Rapid Cure Implanted:Qty : 1 on 09/03/2020 by Srikanth Horta MD at [facility] Spine Cervical [employer] 07/05/2023 [id number] / / [id number] Graft Bone 1-4mm 15ml Crsh Fsh Frzn Canc Implanted:Qty : 1 on 09/03/2020 by Srikanth Horta MD at [facility] Spine Cervical [employer] 08/30/2022 [id number] / / [id number] Screw 3.5mm 12mm Ma Spne Bone Implanted:Qty : 6 on 09/03/2020 by Srikanth Horta MD at [facility] Spine Cervical Medtronic [employer] [id number] / / Screw Set Std Spne Implanted:Qty : 6 on 09/03/2020 by Srikanth Horta MD at [facility] Spine Cervical Medtronic [employer] [id number] / / Erik Spnl 40mm 3.5mm Pcut Implanted:Qty : 2 on 09/03/2020 by Srikanth Horta MD at [facility] Spine Cervical Medtronic [employer] Spine [id number] / / Procedures Procedure Name Priority Date/Time Associated Diagnosis Comments HIV-1 HIV-2 ANTIBODY Routine 06/09/2013 11:28 AM HEAD MECHANIC from Last 3 Months or Most Recently Relevant to Health Maintenance Results * HIV-1 HIV-2 ANTIBODY (06/09/2013 11:28 AM HEAD MECHANIC) Pathologist [facility] HIV-1/HIV-2 Non Reactive Non Reactive 4 2:09 PM HEAD MECHANIC [facility] Blood BLOOD SPECIMEN / Unknown Venipuncture / Unknown 06/09/2013 11:28 AM HEAD MECHANIC 06/09/2013 11:41 AM HEAD MECHANIC us Poonam Collado MD LAB - CHEMISTRY ORDERABLE S Final Result [facility] [address] [place] [address] from Last 3 Months or Most Recently Relevant to Health Maintenance Insurance [facility] Member Subscriber Plan / Payer (Ef fective for All Dates) Name:Ole Ballesteros Relation to Subscriber:Self Name:OLE BALLESTEROS Payer ID:Not on file Group ID:Not on file Type:Medicaid [place] Address: [address] [id number] MEDICAID - OUT OF [facility] MEDICAID - OUT OF STATE PAYOR GENERIC PAYOR GENERIC Member Subscriber Plan / Payer (Ef fective 2018-Present) Name:Ole Ballesteros Relation to Subscriber:Self Name:Ole Ballesteros Payer ID:Not on file Group ID:Not on file Type:Worker's Comp Address: [address] * Guarantor: [id number] Account Type Relation to Patient Date of Phone Billing Address Workers Comp Employer * Guarantor: [id number] Account Type Relation to Patient Date of Phone Billing Address Workers Comp Employer * Guarantor: [id number] Account Type Relation to Patient Date of Phone Billing Address Workers Comp Employer Advance Directives * Full Code (Latest Code Status on File) Date Activated Date Inactivated Comments 09/03/2020 12:05 PM 09/04/2020 12:25 PM * Full Code Date Activated Date Inactivated Comments 05/06/2019 9:20 PM 05/07/2019 3:26 PM * Full Code Date Activated Date Inactivated Comments 07/29/2013 2:51 AM 07/31/2013 2:04 PM * Full Code Date Activated Date Inactivated Comments 07/23/2013 7:32 AM 07/29/2013 2:51 AM * Full Code Date Activated Date Inactivated Comments 07/18/2013 11:45 PM 07/19/2013 1:16 AM Care Teams Filter Press Tender Head Relationship Specialty Start Date End Date Gin Garcia MD [address] [place] [phone] PCP - General 01/16/19 Saulo Trinidad MD [address] [place] [id number] Obstetrics and Gynecology 06/23/13
--- OUTSIDE RECORDS SUMMARY | 2025-04-28 11:29 | XMS_ITS | Encounter Summary ---
Author Organization [facility] Address [address] [place] [address] Phone Care Team Providers Care Rehanger Name Role Phone Gin Garcia MD Primary Care Provider [phone] Justin Shelby MD Unavailable Soha Garcia CAR DEALER, CLINICAL APPEALS RN Primary Care Provider + Encounter Details Date Type Department Care Team (Late st Contact Info) Description 10/16/2024 [facility] [address] [place] [address] Janene Bautista, CAR DEALER, CLINICAL APPEALS RN [address] [place] [address] Social History Tobacco Use Types Packs/Day Years Used Date Smoking Tobacco: Every Day Cigarettes 1 21 Started: 2004 Smokeless Tobacco: Never Alcohol Use Standard Drinks/Week Comments Yes 12 (1 standard drink = 0.6 oz pu re alcohol) 1-2 twisted tea a night Sexually Active Control Partners Comments Yes Male Comments No Sex and Gender Information Value Date Recorded Sex Assigned at Not on file Legal Sex Female 2:28 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 Gender Identity Not on file Sexual Orientation Not on file documented as of this encounter Plan of Treatment Upcoming Encounters Date Type Department Care Team (Late st Contact Info) Description 05/05/2025 9:00 AM CHRONOMETER ASSEMBLER Office Visit [facility] - Obstetrics & Gynecology [facility] [address] [place] [address] Soha Garcia, CAR DEALER, CLINICAL APPEALS RN [address] [place] [address] documented as of this encounter Procedures Procedure Name Priority Date/Time Associated Diagnosis Comments QUANTIFERON-TB GOLD PLUS Routine 10/16/2024 11:45 AM CDT MMRV PANEL Routine 10/16/2024 11:45 AM CDT MUMPS IGG Routine 10/16/2024 11:45 AM CDT HERPES ZOSTER (VARICELLA) IGG Routine 10/16/2024 11:45 AM CDT RUBEOLA (MEASLES) IGG Routine 10/16/2024 11:45 AM CDT RUBELLA IMMUNITY IGG Routine 10/16/2024 11:45 AM CDT documented in this encounter Results * QUANTIFERON-TB GOLD PLUS (10/16/2024 11:45 AM CDT) NIL CONTROL 0.02 <8.01 IU/mL 10/19/2024 10:39 AM CDT [facility] TB ANTIGEN 1 0.07 <0.35 IU/mL 10/19/2024 10:39 AM CDT [facility] TB ANTIGEN 2 0.05 <0.35 IU/mL 10/19/2024 10:39 AM CDT [facility] MITOGEN CONTROL 9.98 >0.49 IU/mL 10/20/19 10:39 AM CDT [facility] INTEPRETATION TB NEGATIVE NEGATIVE, NEGATIVE (TB antigen response less than 25% of internal negative control value) 10/19/2024 10:39 AM CDT [facility] Comment:No immune response t o Mycobacterium tuberculosis antigens was noted. M. tuberculosis infection unlikely. Blood Venipuncture / Unknown 10/16/2024 11:45 AM CDT 10/16/2024 12:34 PM CDT Narrative [facility] - 10/19/2024 10:39 AM CDT A POSITIVE QUANTIFERON-TB GOLD PLUS RESULT SHOULD NOT BE THE SOLE OR DEFINITIVE BASIS FOR DETERMINING INFECTION WITH M.TUBERCULOSIS. Diagnosing or excluding tuberculosis disease, and assessing the probability of LTBI, requires a combination of epidemiological, historical, medical and diagnostic findings (e.g., acid fast bacilli (AFB) smear and culture, chest xray) that should be taken into account when interpreting QFT-Plus results. Furthermore, the magnitude of the measured gamma interferon level cannot be correlated to stage or degree of infection, level of immune responsiveness, or likelihood for progression to active disease. The Nil control adjusts for background (e.g., elevated levels of circulating gamma interferon or presence of heterophile antibodies). The Mitogen control serves as an internal positive control and verifies each specimen tested can produce a gamma interferon response. Low mitogen may occur with insufficient lymphocytes, reduced lymphocyte activity due to improper specimen handling, filling/mixing of the mitogen tube, or inability of the patient's lymphocytes to generate gamma interferon. Infection with other Mycobacteria, including M. kansasii, M. szulgai, and M. marinum, may cause false positive results. A negative QuantiFERON-TB Gold Plus result does not preclude the possibility of M. tuberculosis infection or tuberculosis disease: false negative results can be due to incorrect blood sample collection/ improper handling of the specimen, stage of infection (e.g., specimen obtained prior to the development of cellular immune response), co-morbid conditions which affect immune function, or other individual immunological factors. The minimum number of lymphocytes required for a reliable test has not been established and may also be variable. Diagnostic testing for Mycobacterium tuberculosis using Interferon Gamma Release Assays should follow applicable published guidelines, including when testing in populations such as children, women, and HIV-infected or otherwise immunocompromised individuals. https://www.cdc.gov/tb/publications/guidelines/testing.htm us Janene Bautista CAR DEALER, CLINICAL APPEALS RN IMMUNOLOGY ORDERABL ES Final Result [facility] [address] [place] [address], [place] * HERPES ZOSTER (VARICELLA) IGG (10/16/2024 11:45 AM CDT) VARICELLA ZOSTER IGG 1.3 >=1.1 AI 10/16/2024 9:20 PM CDT [facility] Blood Venipuncture / Unknown 10/16/2024 11:45 AM CDT 10/16/2024 12:34 PM CDT Narrative [facility] - 10/16/2024 9:20 PM CDT <= 0.8 Negative. No detectable VZV IgG antibody. 0.9 - 1.0 Equivocal >=1.1 Positive Antibody testing was performed by multiplex flow immunoassay on the BioPlex platform. Janene L Behrends CAR DEALER, CLINICAL APPEALS RN IMMUNOLOGY ORDERABL ES Final Result Performing Organization Address City/[facility]/ZIP Co de Phone Number [facility] [address] [place] [address], [place] * (ABNORMAL) RUBEOLA (MEASLES) IGG (10/16/2024 11:45 AM CDT) MEASLES AB IGG 0.6(L) >=1.1 AI 10/16/2024 9:20 PM CDT [facility] Blood Venipuncture / Unknown 10/16/2024 11:45 AM CDT 10/16/2024 12:34 PM CDT Narrative [facility] - 10/16/2024 9:20 PM CDT <= 0.8 Negative. No detectable Measles IgG antibody. 0.9 - 1.0 Equivocal >=1.1 Positive Antibody testing was performed by multiplex flow immunoassay on the BioPlex platform. us Janene L Behrends CAR DEALER, CLINICAL APPEALS RN IMMUNOLOGY ORDERABL ES Final Result [facility] [address] [place] [address], [place] * RUBELLA IMMUNITY IGG (10/16/2024 11:45 AM CDT) Pathologist [facility] RUBELLA IMMUNITY Immune Immune, Invalid 10/16/2024 9:20 PM CDT [facility] RUBELLA IGG QUANT 1.80 >=1.0 AI AI 10/16/2024 9:20 PM CDT [facility] Blood Venipuncture / Unknown 10/16/2024 11:45 AM CDT 10/16/2024 12:34 PM CDT Narrative [facility] - 10/16/2024 9:20 PM CDT Antibody testing was performed by multiplex flow immunoassay on the BioPlex platform. us Janene L Behrends CAR DEALER, CLINICAL APPEALS RN CHEMISTRY ORDERABLE S Final Result Performing Organization Address [facility] Co de Phone Number [facility] [address] [place] [address], [place] * (ABNORMAL) MUMPS IGG (10/16/2024 11:45 AM CDT) Pathologist [facility] Mumps Ab IgG 0.9(L) >=1.1 AI 10/16/2024 9:20 PM CDT [facility] Blood Venipuncture / Unknown 10/16/2024 11:45 AM CDT 10/16/2024 12:34 PM CDT Narrative [facility] - 10/16/2024 9:20 PM CDT <= 0.8 Negative. No detectable Mumps IgG antibody. 0.9 - 1.0 Equivocal >=1.1 Positive Antibody testing was performed by multiplex flow immunoassay on the BioPlex platform. us Janene L Behrends CAR DEALER, CLINICAL APPEALS RN IMMUNOLOGY ORDERABL ES Final Result Performing Organization Address City/[facility]/ZIP Co de Phone Number [facility] [address] [place] [address], [place] documented in this encounter Visit Diagnoses Not on filedocumented in this encounter Care Teams Rehanger Relationship Specialty Start Date End Date Gin Garcia MD PCP - General Internal Medicine 04/16/19 02/12/25 Soha Garcia APRN, CLINICAL APPEALS RN [address] [place] [address] PCP - General Advanced Practice Nurse 02/13/25 Justin Shelby MD [address] [address] Consulting Physician Colon and Rectal Surgery 08/29/24 documented as of this encounter
--- NOTE | 2025-04-28 11:39 | ED.URI ---
HPI - URI/Sore Throat General Chief Complaint: Nausea/Vomiting/Diarrhea Stated Complaint: cold/flu symptoms Time Seen by Provider: 04/28/25 11:15 Source: patient and RN notes reviewed Mode of arrival: ambulatory Limitations: no limitations History of Present Illness HPI Narrative: A 5-year-old female presents Express Care complaining of upper respiratory symptoms for 2-3 days. Patient said a week ago she developed nausea however was feeling better last 2-3 days ago she developed cough, mucopurulent sputum, nausea, vomiting, diarrhea, chest congestion, body aches, chills, sweats. Patient has any fevers. Patient last vomited yesterday. Patient has since been able to keep fluids down, she says the diarrhea is improving. Patient primarily having upper respiratory symptoms. Patient has any difficulty breathing or chest pains. Patient is a smoker and has a history of asthma. Related Data Home Medications ?Medication ?Instructions ?Recorded ?Confirmed ?Last Taken ?Type albuterol sulfate 90 mcg/actuation inhalation 04/28/25 Unknown History aerosol inhaler cyclobenzaprine 5 mg tablet mg 04/28/25 Unknown History sumatriptan succinate 25 mg tablet mg PO 04/28/25 Unknown History Allergies Allergy/AdvReac Type Severity Reaction Status Date / Time docusate Allergy Intermediate Nausea and Verified 04/28/25 11:14 Vomiting Review of Systems Review of Systems: CONSTITUTIONAL: Denies fever. Positive for body aches, chills, and sweats. EYES: Denies visual changes, redness, or discharge. ENT: Denies rhinorrhea, sore throat, or otalgia. Positive for congestion. CARDIOVASCULAR: Denies chest pain, palpitations, or edema. RESPIRATORY: Positive for cough and chest congestion. Negative for wheezing dyspnea. GASTROINTESTINAL: Denies abdominal pain, nausea, vomiting, or diarrhea. GENITOURINARY: Denies dysuria or hematuria. SKIN: Denies rash or itching. MUSCULOSKELETAL: Denies back pain, joint pain, or myalgia. NEUROLOGIC: Denies headache, numbness, or weakness. PSYCHIATRIC: Denies anxiety or depression. All other systems reviewed are negative, except as documented in HPI. [facility] Social History Social History Smoking status: Never smoker Alcohol intake: current Comments At the time of my signature, I reviewed and agree with the nursing past medical, surgical, social, and family history. There is no relevant family history pertinent to the patient complaint. Exam Narrative: GENERAL: This is a well-nourished, well-developed adult, in no apparent distress. They are non ill-appearing, nontoxic appearing. HEAD: normocephalic, atraumatic. EYES: Sclera clear/white. Conjunctiva normal. Vision is grossly intact. Extraocular movements intact EARS: External ears normal, auditory canals clear and without drainage, TMs normal without perforation. Hearing grossly intact. NOSE: External nose normal with no obvious nasal discharge, nasal turbinates erythematous, no rhinorrhea. THROAT: Mucous membranes moist, posterior pharynx [place] appearing. PND present. Uvula midline. NECK: Neck supple, non-tender without lymphadenopathy, masses or thyromegaly. CARDIOVASCULAR: Regular rate and rhythm without murmurs, gallops, or rubs. RESPIRATORY: Diminished to bilateral lower lobes. Breath sounds equal bilaterally. No wheezes, rales, or rhonchi. GASTROINTESTINAL: Abdomen soft, non-tender, nondistended. SKIN: warm, Dry, intact with no suspicious lesions or rash, good texture and turgor. NEURO: awake, alert, and oriented to person, place and time. There were no obvious focal neurologic abnormalities. EXTREMITIES: No joint tenderness, effusion, or edema noted. BACK: Nontender without deformity. Course Course Level of Care: Express Care Visit Vital Signs Vital signs: Vital Signs Temperature 97.9 F 04/28/25 11:04 Pulse Rate 94 04/28/25 11:04 Respiratory Rate 20 04/28/25 11:04 Blood Pressure 128/78 04/28/25 11:04 Pulse Oximetry 100 04/28/25 11:04 Oxygen Delivery Room Air 04/28/25 11:04 Temperature 97.9 F 04/28/25 11:04 Pulse Rate 94 04/28/25 11:04 Respiratory Rate 20 04/28/25 11:04 Blood Pressure 128/78 04/28/25 11:04 Pulse Oximetry 100 04/28/25 11:04 Oxygen Delivery Room Air 04/28/25 11:04 MDM MDM Narrative Medical decision making narrative: Patient is lung sounds diminished, offer chest x-ray to assess for pneumonia or any other acute cardiopulmonary findings patient declined. Rapid COVID and flu were negative. Will empirically treat for purulent bronchitis with azithromycin and prednisone given her symptoms and smoking history. Patient nontoxic appearing, no apparent distress, vital signs hemodynamically stable. Patient in no respiratory distress. Discussed supportive care. Discussed physical exam findings. Advised supportive measures and signs/symptoms to go to the ER. Pt is appropriate for outpt treatment and f/u. Differential Diagnosis Differential Diagnosis: Differential diagnostic considerations for upper respiratory infection include upper respiratory infection, croup, otitis media, sinusitis, viral infection, bronchitis, influenza, pharyngitis, strep, uvulitis, pneumonia. Lab Data [facility] Lab Attestation statement: I personally reviewed the patient's lab results. Labs: Lab Results 04/28/25 Range/Units 11:23 POC Influenza A Ag Negative (Negative) POC Influenza B Ag Negative (Negative) POC SARS CoV-2 Ag Negative (Negative) Critical Care Time Critical Care Time Critical Care Time: No Discharge Plan Discharge Clinical Impression: Purulent bronchitis Patient Disposition: Home Condition: Stable Instructions: Antibiotic Form, Acute Bronchitis (ED) Additional Instructions: Acute bronchitis can be contagious because it is usually caused by infection with a virus or bacteria. It is usually for a few days but you can be contagious for up to one week. Avoid crowds until you do not have a fever and symptoms are improved Take the prednisone as directed. Take azithromycin as directed. Recommend Flonase spray and Zyrtec (or Claritin/Monica) as needed for congestion over the counter Cough syrup may cause drowsiness; avoid driving or take it at night time. Tylenol or ibuprofen as needed for pain or fevers. Follow instructions on the bottle. Symptomatic treatment includes: rest, fluids, and increase humidity of the air at home. Follow up with your primary care provider 3-5 days. Go to the ER for worsening symptoms, chest pain, uncontrollable vomiting, difficulty breathing, weakness, dehydration, or any serious concerns Patient Language: Slovak Prescriptions: New azithromycin 250 mg tablet See Rx Instructions .ROUTE .COMPLEX Qty: 6 0RF Rx Instructions: For 250 mg dose pack: take 500 mg today (day 1), then 250 mg for 4 days (days 2-5) prednisone 20 mg tablet 40 mg PO DAILY 5 Days Qty: 10 0RF No Action sumatriptan succinate 25 mg tablet PO albuterol sulfate 90 mcg/actuation HFA aerosol inhaler INHALATION cyclobenzaprine 5 mg tablet Follow-up/Referrals: Soha Garcia RN [Primary Care Provider, Nursing] Stand Alone Forms: Work/School Release IP Time of Disposition: 11:35
== END 2025-04-28 11:42 | disposition home or self-care (01) ==
DX: J40 Bronchitis, not specified as acute or chronic (principal); Z20.822 Contact with and (suspected) exposure to COVID-19; J45.909 Unspecified asthma, uncomplicated
CPT/HCPCS: 87426; 87804; 99213; G0463